=== PATIENT | male | born 1980 | race Caucasian/White ===

== ENCOUNTER 2023-03-26 08:06 | Outpatient (AMB) | payer OTHER, SELFPAY ==
--- NOTE | 2023-03-26 08:10 | A.OFFVIS_ITS ---
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 male here today for pre colonoscopy screening.? Patient was sent to us by his PCP.? Rectal bleed on and off for the ast couple of years. Reports bright red blood after bowel movements. Patient denies any abdominal pain or discomfort. Denies any personal or family history of gastrointestinal disease, colon polyps, or cancer.? Denies history of difficulty with sedation or anesthesia in the past.? History of sleep apnea.? Wears CPAP machine on and off. Patient reports that there is days when he can not tolerate the CPAP. Denies any history of cardiac, renal, pulmonary, or hepatic disease.?? No history of infectious? diseases like hepatitis A, B, C, HIV or tuberculosis.? Patient is not on any anticoagulation therapy. PFSH Surgical History (Updated 03/26/23 @ 08:17 by Tobias Feliciano) Hx of right knee surgery Family History (Updated 03/26/23 @ 08:16 by Tobias Feliciano) Maternal Grandmother HTN (hypertension) Diabetes Social History Household Members: Family Alcohol intake: never Patient Tobacco Use Status: Never used Tobacco Review of Systems Const Denies weight gain and Denies weight loss ENT Reports no additional complaints, Denies dysphagia and Denies odynophagia Card Reports no additional complaints Resp Reports no additional complaints GI Denies abdominal pain, Denies belching, Denies melena, Denies bloating, Reports hematochezia, Denies change in bowel habits, Denies dysphagia, Denies excessive flatus, Denies dyspepsia, Denies heartburn, Denies diarrhea, Denies loose stools, Denies nausea, Denies odynophagia and Denies vomiting Reports no additional complaints Musc Reports no additional complaints Neuro Reports no additional complaints Psych Reports no additional complaints Endo Reports no additional complaints Physical Exam Const General: healthy appearing, no acute distress and well developed Nutritional Appearance: obese Orientation/consciousness: patient oriented x3 HEENT Head: Yes normal to inspection, Yes normocephalic and Yes atraumatic Face and sinus: Yes normal facial exam Mouth: Normal oral and palatal mucosa present Throat: Yes posterior oropharynx normal, Yes tonsils normal and Yes uvula midline Eyes General: appearance normal, both eyes and all related structures Neck Neck: Yes normal visual inspection, Yes full ROM and Yes trachea midline Thyroid: Thyroid normal Resp Effort & Inspection: normal respiratory effort, able to speak in complete sentences, no tracheal deviation and symmetric chest movement Auscultation: clear to auscultation bilaterally Cardio Rate: regular rate Heart sounds: S1 normal heart sound present and S2 normal heart sound present GI Inspection: Yes normal to inspection and No distended Palpation (GI): Soft to palpation, not firm, nontender and No hepatosplenomegaly present Auscultation: normal bowel sounds General: Yes no CVA tenderness Back/Spine/Pelvis Back: no CVA tenderness Skin General skin exam: elasticity normal, turgor normal and dry skin Neuro General: patient oriented x3 Psych Appearance: grossly normal Mental Status: mental status grossly normal Speech and movement: Normal speech and movement present Assessment & Plan Assessment & Plan (1) Rectal bleed: Code(s): K62.5 - Hemorrhage of anus and rectum Plan: Patient denies any rectal pain. Patient denies diarrhea. Bowel movements are usually soft. Patient denies any cardiac or respiratory symptoms.? Denies any issues with anesthesia in the past.? History of sleep apnea. No history infectious diseases in the past or present.? Not on any anticoagulation therapy.? No family or personal history of colon cancer or polyps.? Patient reports hematochezia, denies melena, unintentional weight loss or ribbon like stools.? Discussed at length the pre-procedure,? prep, diet & medications as well as what to expect prior, during and after the procedure.?? Stressed the importance of good bowel prep. ?Recommended the use of Vaseline or Calmoseptine OTC & baby wipes with bowel movements to promote comfort.? ?Patient verbalizes understanding and agrees to plan of care.? He was given the opportunity to ask questions and all questions answered.? We will see him after the procedure.? Medications: New bisacodyl (Dulcolax (bisacodyl)) take 2 tabs at noon the day before your colonoscopy 10 mg (2 x 5 mg) PO ONCE 1 day 2 tabs 0RF Z12.11 - Encounter for screening for malignant neoplasm of colon polyethylene glycol 3350 (Miralax) As directed by gastroenterology department at [facility] 238 grams PO ONCE 238 grams 0RF Z12.11 - Encounter for screening for malignant neoplasm of colon Coding Level of Care Code New Pt Level 3 (44733) Diagnoses Rectal bleed K62.5 Time Spent (min) 40 Comment 30 minutes spent with patient and additional 10 minutes spent his records
[2023-03-26 08:13] VITALS: BP 129/71; PULSE 66; BMI 33.3
== END 2023-03-26 09:23 | disposition home or self-care (01) ==
PROVIDERS: PCP Physician Assistant Medical; Visit Provider Nurse Practitioner Family
DX: K62.5 Hemorrhage of anus and rectum (principal)
CPT/HCPCS: 99203

== ENCOUNTER → 2023-03-26 08:06 | Outpatient (BNVA) | payer OTHER, SELFPAY | PROVIDERS: PCP Physician Assistant Medical; Visit Provider Nurse Practitioner Family | DX: K62.5 Hemorrhage of anus and rectum (principal) | CPT/HCPCS: 99202 ==

== ENCOUNTER 2023-05-16 10:00 | Day surgery (SDC) | payer OTHER, SELFPAY ==
[2023-05-14 14:39] VITALS: BMI 33.4
--- NOTE | 2023-05-15 13:50 | P.CONAN_ITS ---
Documented by User: Jolie Schneider NP 05/15/23 13:50 HPI - Anesthesia Eval Consult details Narrative: 43yo M for Colonoscopy [facility] Past Medical History Medical History (Updated 05/14/23 @ 14:42 by Lynsey Salinas RN) PTSD (post-traumatic stress disorder) Elevated cholesterol Depression HTN (hypertension) Sleep apnea Family History Family History (Updated 03/26/23 @ 08:16 by Tobias Feliciano) Maternal Grandmother HTN (hypertension) Diabetes Surgical History Surgical History (Updated 03/26/23 @ 08:17 by Tobias Feliciano) Hx of right knee surgery Social History Social History (Updated 03/26/23 @ 08:16 by Tobias Feliciano) Household Members: Family Alcohol intake: never Patient Tobacco Use Status: Never used Tobacco Meds Allergies Allergy/AdvReac Type Severity Reaction Status Date / Time No Known Allergies Allergy Verified 03/26/23 08:14 Home Medications Medication Instructions Recorded Confirmed Last Taken Type lisinopril 5 mg tablet 5 mg PO DAILY 03/26/23 05/14/23 Unknown History Exam Exam Date and Time: May 15, 2023 1350 Height,Weight and Vital Signs: Height 6 ft Weight 111.584 kg Assessment and Plan Assessment Anesthesia Assessment: Chart Reviewed Documented by User: Manan Hamilton MD 05/16/23 18:23 [facility] Past Medical History Medical History (Updated 05/14/23 @ 14:42 by Lynsey Salinas RN) PTSD (post-traumatic stress disorder) Elevated cholesterol Depression HTN (hypertension) Sleep apnea Family History Family History (Updated 03/26/23 @ 08:16 by Tobias Feliciano) Maternal Grandmother HTN (hypertension) Diabetes Family history of problems with anesthesia: No Surgical History Surgical History (Updated 03/26/23 @ 08:17 by Tobias Feliciano) Hx of right knee surgery History of Problems with Anesthesia: No Social History Social History (Updated 03/26/23 @ 08:16 by Tobias Feliciano) Household Members: Family Alcohol intake: never Patient Tobacco Use Status: Never used Tobacco Meds Allergies Allergy/AdvReac Type Severity Reaction Status Date / Time No Known Allergies Allergy Verified 03/26/23 08:14 Home Medications Medication Instructions Recorded Confirmed Last Taken Type lisinopril 5 mg tablet 5 mg PO DAILY 03/26/23 05/14/23 Unknown History Exam Airway Mallampati Class: III TM Dist: >3cm Neck ROM: Full Loose/Missing/Broken Teeth: Yes Assessment and Plan Assessment Anesthesia Assessment: Anesthesia Plan Discussed Final Anesthetic Review Family History of Problems with Anesthesia: No History of Problems with Anesthesia: No NPO: Yes ASA Class: II Final Preanesthetic Review: Meds/Allgs Chart Reviewed, Consent Obtained/Reviewed and Anes Risks/Benef Reviewed Patient Risk: Intermediate Procedure Risk: Intermediate Anesthetic Plan Anesthetic Plan: MAC: and Agree w/ Assess. and Plan Disposition: Standard PACU
[2023-05-16 10:17] VITALS: BP 145/97; PULSE 72; RESP 18; TEMP 36.6; O2SAT 96
--- NOTE | 2023-05-16 11:01 | P.HPSUR_ITS ---
Pre-Procedural Eval Section A Date of Service: 05/16/23 Section B Chief Complaint: Hemorrhage of anus and rectum Relevant Family History (Specify if Yes): No Relevant Social History: None Present Medications: see Short Stay Collaborative assessment Medical History: Significant History (PTSD (post-traumatic stress disorder) Elevated cholesterol Depression HTN (hypertension) Sleep apnea) History of Previous Operations: Relevant previous surgery/procedure and date(s) (right knee surgery) Allergies: Allergies Allergy/AdvReac Type Severity Reaction Status Date / Time No Known Allergies Allergy Verified 03/26/23 08:14 Review of Systems Sugical H&P ROS: Negative: Constitution, Cardiovascular, Respiratory, Neurological, Psychiatric, Hem-Onc, Allergic/Immunologic, Gastrointestinal, Genitourinary, Musculoskeletal, Integumentary, Endocrine and Eyes/Ears/Nose /Throat Exam Surgical H&P Exam: Normal: HEENT, Normal: Heart, Normal: Lungs, Normal: Extremities, Normal: Abdomen, Normal: Skin and Normal: Neurological Plan Diagnosis/Plan: Unchanged I have reviewed the history and physical and performed a pertinent physical examination on my patient. No changes have occurred unless specified. Time Spent With Patient Time: Total time managing care of this patient today ____ minutes.
--- NOTE | 2023-05-16 11:33 | P.OP_ITS ---
Operative Note Operative Note Date of Service: 05/16/23 Narrative: Operative Information Procedure Description: Colonoscopy Indication: rectal bleeding Anesthesia: MAC COLONOSCOPY Instrument: Olympus variable stiffness pediatric scope 190L Colonoscopy Monitoring: Vital signs and clinical assessment, continuous EKG monitoring, Pulse oximetry, Carbon Dioxide monitoring and blood pressure monitoring were done throughout the procedure. Colon withdrawal time was 10 minutes. Procedure: The patient was placed in the left lateral decubitis position and pre-procedure medications were administered. After a digital rectal examination of the ano-rectum, the video colonoscope was inserted into the rectum and advanced through the colon to the cecum/TI. The colonoscope was slowly withdrawn in a retrograde panoramic fashion and the colon mucosa was carefully examined including a retroflexed view of the rectum. Findings and interventions are described below. Procedure Difficulty: easy Findings: Terminal Ileum-normal Cecum:normal Ascending Colon: few diverticula Transverse Colon -normal Descending Colon:normal Sigmoid Colon: moderate diverticulosis, Rectum: Retroflexion with small, slightly inflammed internal hemorrhoids, grade I Anorectum - normal Colon preparation: [place] Bowel Preparation Scale Right colon; 2 Transverse colon: 2 Left colon; 2 (0 = Unprepared colon segment with mucosa not seen due to solid stool that cannot be cleared. 1 = Portion of mucosa of the colon segment seen, but other areas of the colon segment not well seen due to staining, residual stool and/or opaque liquid. 2 = Minor amount of residual staining, small fragments of stool and/or opaque liquid, but mucosa of colon segment seen well. 3 = Entire mucosa of colon segment seen well with no residual staining, small fragments of stool or opaque liquid) Impression and Post Procedure Diagnosis: internal hemorrhoids diverticular disease Plan: High fiber diet leaflet Avoid straining at stool, epsom salts and sitz bath, anusol supps or cream Repeat Colonoscopy in 10 years or earlier if clinically indicated Above findings were reviewed with the patient and relevant handouts were provided if indicated.
[2023-05-16 11:39] VITALS: BP 115/77; PULSE 81; RESP 20; TEMP 36.4; O2SAT 96
[2023-05-16 11:54] VITALS: BP 122/82; PULSE 71; RESP 20; O2SAT 96
[2023-05-16 12:09] VITALS: BP 142/89; PULSE 68; RESP 20; TEMP 36.5; O2SAT 96
== END 2023-05-16 12:42 | disposition home or self-care (01) ==
PROVIDERS: PCP Physician Assistant Medical; Visit Provider Internal Medicine Gastroenterology
PROC: 0DJD8ZZ Inspection of Lower Intestinal Tract, Via Natural or Artificial Opening Endoscopic (ICD-10-PCS; CPT 45378; principal; 2023-05-16 12:30)
DX: K62.5 Hemorrhage of anus and rectum (principal); Z80.0 Family history of malignant neoplasm of digestive organs; K57.30 Diverticulosis of large intestine without perforation or abscess without bleeding; K64.0 First degree hemorrhoids; I10 Essential (primary) hypertension; E78.00 Pure hypercholesterolemia, unspecified; F43.10 Post-traumatic stress disorder, unspecified; G47.30 Sleep apnea, unspecified; Z99.89 Dependence on other enabling machines and devices; Z79.899 Other long term (current) drug therapy
CPT/HCPCS: 45378

== ENCOUNTER → 2023-05-16 10:00 | Outpatient (BNV) | payer OTHER, SELFPAY | PROVIDERS: PCP Physician Assistant Medical; Visit Provider Internal Medicine Gastroenterology | DX: Z12.11 Encounter for screening for malignant neoplasm of colon (principal); Z80.0 Family history of malignant neoplasm of digestive organs; K62.5 Hemorrhage of anus and rectum; K57.30 Diverticulosis of large intestine without perforation or abscess without bleeding; K64.0 First degree hemorrhoids | CPT/HCPCS: 45378 ==

== ENCOUNTER 2023-05-29 09:50 | Outpatient (AMB) | payer OTHER, SELFPAY ==
[2023-05-29 09:53] VITALS: BP 146/83; PULSE 102; BMI 35.3
--- NOTE | 2023-05-29 09:53 | A.OFFVIS_ITS ---
Intake Vital Signs 05/29/23 09:53 Height 6 ft Weight 260 lb 2.327 oz BMI 35.3 BP 146/83 H Blood Pressure Location Lt brachial Position Sitting Pulse 102 H Pulse Source Pulse Oximeter Intake Visit Reasons: S/p colon perry Intake Note: Pt presents to the office today for a s/p colonoscopy. Pt states he is feeling well and denies any GI issues. Allergies No Known Allergies Allergy (Verified 05/29/23 09:55) HPI S/p colon perry HPI Details LAST VISIT Rectal bleed Patient denies any rectal pain. Patient denies diarrhea. Bowel movements are usually soft. Patient denies any cardiac or respiratory symptoms.? Denies any issues with anesthesia in the past.? History of sleep apnea. No history infectious diseases in the past or present.? Not on any anticoagulation therapy.? No family or personal history of colon cancer or polyps.? Patient reports hematochezia, denies melena, unintentional weight loss or ribbon like stools.? Discussed at length the pre-procedure,? prep, diet & medications as well as what to expect prior, during and after the procedure.?? Stressed the importance of good bowel prep. ?Recommended the use of Vaseline or Calmoseptine OTC & baby wipes with bowel movements to promote comfort.? ?Patient verbalizes understanding and agrees to plan of care.? He was given the opportunity to ask questions and all questions answered.? We will see him after the procedure.? COLONOSCOPY: Findings: Terminal Ileum-normal Cecum:normal Ascending Colon: few diverticula Transverse Colon -normal Descending Colon:normal Sigmoid Colon: moderate diverticulosis, Rectum: Retroflexion with small, slightly inflammed internal hemorrhoids, grade I Anorectum - normal Colon preparation: [place] Bowel Preparation Scale Right colon; 2 Transverse colon: 2 Left colon; 2 (0 = Unprepared colon segment with mucos a not seen due to solid stool that cannot be cleared. 1 = Portion of mucosa of the colon segme nt seen, but other areas of the colon segment not well seen due to staining, residual stool and/or opaque liquid. 2 = Minor amount of residual staining, s mall fragments of stool and/or opaque liquid, but mucosa of colon segment seen well. 3 = Entire mucosa of colon segment seen well with no residual staining, small fragments of stool or opaque liquid) Impression and Post Procedure Diagnosis: internal hemorrhoids diverticular disease Plan: High fiber diet leaflet Avoid straining at stool, epsom salts and sitz bath, anusol supps or cream Repeat Colonoscopy in 10 years or earlier if clinically indicated TODAY'S VISIT Patient is here today for follow-up and to discuss colonoscopy results rib patient denies any ill effects from the prep, anesthesia or procedure itself. Patient reports that he has been feeling well. Denies any rectal bleed since the procedure the patient had no polyps, moderate diverticulosis to sigmoid colon found that grade 1 hemorrhoids. Patient however has a family history of colorectal cancer and will need to have colonoscopy every 5 years. Patient denies any GI concerning symptoms. Reports that he is moving his bowels without any issues. Patient denies is vesicular dysphagia or odynophagia. [facility] Medical History (Updated 05/29/23 @ 10:12 by Anamaria Santoyo [facility]) Diverticulosis PTSD (post-traumatic stress disorder) Elevated cholesterol Depression HTN (hypertension) Sleep apnea Surgical History Hx of right knee surgery Family History Maternal Grandmother HTN (hypertension) Diabetes Social History Household Members: Family Alcohol intake: never Patient Tobacco Use Status: Never used Tobacco Review of Systems Const Denies weight gain and Denies weight loss ENT Reports no additional complaints, Denies dysphagia and Denies odynophagia Card Reports no additional complaints Resp Reports no additional complaints GI Denies abdominal pain, Denies belching, Denies melena, Denies bloating, Denies change in bowel habits, Denies dysphagia, Denies excessive flatus, Denies dyspepsia, Denies heartburn, Denies diarrhea, Denies loose stools, Denies nausea, Denies odynophagia and Denies vomiting Reports no additional complaints Musc Reports no additional complaints Neuro Reports no additional complaints Psych Reports no additional complaints Endo Reports no additional complaints Physical Exam Vital Signs: Last Vital Signs Pulse 102 H 05/29/23 09:53 BP 146/83 H 05/29/23 09:53 BMI result Body Mass Index 35.3 Const General: healthy appearing, no acute distress and well developed Nutritional Appearance: obese Orientation/consciousness: patient oriented x3 HEENT Head: Yes normal to inspection, Yes normocephalic and Yes atraumatic Face and sinus: Yes normal facial exam Mouth: Normal oral and palatal mucosa present Throat: Yes posterior oropharynx normal, Yes tonsils normal and Yes uvula midline Eyes General: appearance normal, both eyes and all related structures Neck Neck: Yes normal visual inspection, Yes full ROM and Yes trachea midline Thyroid: Thyroid normal Resp Effort & Inspection: normal respiratory effort, able to speak in complete sentences, no tracheal deviation and symmetric chest movement Auscultation: clear to auscultation bilaterally Cardio Rate: regular rate Heart sounds: S1 normal heart sound present and S2 normal heart sound present GI Inspection: Yes normal to inspection, No distended and Yes obesity Palpation (GI): Soft to palpation, not firm, nontender and No hepatosplenomegaly present Auscultation: normal bowel sounds General: Yes no CVA tenderness Back/Spine/Pelvis Back: no CVA tenderness Skin General skin exam: elasticity normal, turgor normal and dry skin Neuro General: patient oriented x3 Psych Appearance: grossly normal Mental Status: mental status grossly normal Assessment & Plan Assessment & Plan (1) Diverticulosis: Code(s): K57.90 - Diverticulosis of intestine, part unspecified, without perforation or abscess without bleeding (2) Rectal bleed: Code(s): K62.5 - Hemorrhage of anus and rectum (3) Status post colonoscopy: Code(s): Z98.890 - Other specified postprocedural states (4) Hemorrhoids without complication: Code(s): K64.9 - Unspecified hemorrhoids Plan Patient had no polyps, internal hemorrhoids found. Moderate is diverticulosis to sigmoid colon. Due to family history of colorectal cancer patient will need to repeat colonoscopy in 5 years. Colonoscopy will be due in March of 2028. Patient will return sooner if he will have any concerns. He is agreeable to this plan and verbalizes understanding of instructions. He was given the opportunity to ask questions and all questions answered. Thank you for allowing me to participate in his care Medications: New hydrocortisone 2.5% (Proctosol HC) 1 appl CO BID-QID PRN 30 grams 2RF hemorrhoids K64.9 - Unspecified hemorrhoids Coding Level of Care Code Est Pt Level 3 (67439) Diagnoses Diverticulosis K57.90 Rectal bleed K62.5 Status post colonoscopy Z98.890 Hemorrhoids without complication K64.9 Time Spent (min) 25 Comment 15 minutes spent with patient and additional 10 minutes spent reviewing her records
== END 2023-05-29 10:08 | disposition home or self-care (01) ==
LOC: HO.HGI 09:50
PROVIDERS: PCP Physician Assistant Medical; Visit Provider Nurse Practitioner Family
DX: K57.90 Diverticulosis of intestine, part unspecified, without perforation or abscess without bleeding (principal); K62.5 Hemorrhage of anus and rectum; Z98.890 Other specified postprocedural states; K64.9 Unspecified hemorrhoids
CPT/HCPCS: 99213

== ENCOUNTER → 2023-05-29 09:50 | Outpatient (BNVA) | payer OTHER, SELFPAY | PROVIDERS: PCP Physician Assistant Medical; Visit Provider Nurse Practitioner Family | DX: K57.90 Diverticulosis of intestine, part unspecified, without perforation or abscess without bleeding (principal); K62.5 Hemorrhage of anus and rectum; K64.9 Unspecified hemorrhoids; Z98.890 Other specified postprocedural states | CPT/HCPCS: 99212 ==